=== PATIENT | male | born 1960 | race Caucasian/White ===

== ENCOUNTER 2016-04-28 13:25 | Observation (INO) | payer BC ==
[2016-04-28 13:27] VITALS: BP 154/87; PULSE 92; RESP 20; TEMP 97.8; O2SAT 94
--- NOTE | 2016-04-28 13:46 | PD ---
HPI Chief Complaint: Chest Pain Time Seen by Provider: 13:46 Travel History International Travel<30 days: No Contact w/Intl Traveler<30days: No Traveled to known affect area: No History of Present Illness HPI 55-year-old male with history of PTSD and anxiety presents to emergency department for 2 waves of chest pain. He states the first way OCCURRED about 20 minutes prior to arrival. It felt like increased heartburn with pain and then radiates into his left arm. Patient reports his next episode was in triage here. He states he felt like he was going to pass out. He had associated nausea and "cold sweats." He states that this time it has mostly resolved but he still has some residual tingling in his left upper extremity. No cardiac history. Patient smokes 3 tobacco cigarettes every evening. Denies any illicit drug use. No recent illnesses, fever, or chills. No other symptoms to report at this time. [facility] Past Medical History Anxiety: Yes Social History Alcohol Use: Yes Tobacco Use: Yes Substance Use: No Allergies-Medications (Allergen,Severity, Reaction): Coded Allergies: No Known Allergies (Unverified , 04/28/16) Reported Meds & Prescriptions Reported Meds & Active Scripts Active No Active Prescriptions or Reported Medications Review of Systems Except as stated in HPI: all other systems reviewed are Neg Physical Exam Narrative GENERAL: Well-nourished male patient, ambulatory no acute distress SKIN: Warm and dry. HEAD: Atraumatic. Normocephalic. EYES: Pupils equal and round. No scleral icterus. No injection or drainage. ENT: No nasal bleeding or discharge. Mucous membranes pink and moist. NECK: Trachea midline. No JVD. CARDIOVASCULAR: Regular rate and rhythm. No murmur appreciated. RESPIRATORY: No accessory muscle use. Clear to auscultation. Breath sounds equal bilaterally. GASTROINTESTINAL: Abdomen soft, non-tender, nondistended. Hepatic and splenic margins not palpable. MUSCULOSKELETAL: No obvious deformities. No clubbing. No cyanosis. No edema. NEUROLOGICAL: Awake and alert. No obvious cranial nerve deficits. Motor grossly within normal limits. Normal speech. PSYCHIATRIC: Appropriate mood and affect; insight and judgment normal. Data Data Last Documented VS Vital Signs Date Time Temp Pulse Resp B/P Pulse Ox O2 Delivery O2 Flow Rate FiO2 04/28/16 16:34 60 18 136/80 100 Nasal Cannula 2 04/28/16 13:27 97.8 Orders Electrocardiogram (04/28/16 13:42) Basic Metabolic Panel (Bmp) (04/28/16 13:42) Ckmb (Isoenzyme) Profile (04/28/16 13:42) Complete Blood Count With Diff (04/28/16 13:42) Magnesium (Mg) (04/28/16 13:42) Prothrombin Time / Inr (Pt) (04/28/16 13:42) Act Partial Throm Time (Ptt) (04/28/16 13:42) Troponin I (04/28/16 13:42) Chest, Pa & Lat (04/28/16 13:42) Aspirin Chew (Aspirin Chew) (04/28/16 14:15) CKMB (04/28/16 13:47) CKMB% (04/28/16 13:47) Troponin I (04/28/16 16:21) Admit Order (Ed Use Only) (04/28/16 16:53) Labs Laboratory Tests Test 04/28/16 04/28/16 13:47 16:52 White Blood Count 9.7 TH/MM3 Red Blood Count 4.75 MIL/MM3 Hemoglobin 14.5 GM/DL Hematocrit 41.6 % Mean Corpuscular Volume 87.7 FL Mean Corpuscular Hemoglobin 30.5 PG Mean Corpuscular Hemoglobin 34.8 % Concent Red Cell Distribution Width 13.1 % Platelet Count 245 TH/MM3 Mean Platelet Volume 7.6 FL Neutrophils (%) (Auto) 59.4 % Lymphocytes (%) (Auto) 31.6 % Monocytes (%) (Auto) 7.5 % Eosinophils (%) (Auto) 0.9 % Basophils (%) (Auto) 0.6 % Neutrophils # (Auto) 5.7 TH/MM3 Lymphocytes # (Auto) 3.1 TH/MM3 Monocytes # (Auto) 0.7 TH/MM3 Eosinophils # (Auto) 0.1 TH/MM3 Basophils # (Auto) 0.1 TH/MM3 CBC Comment DIFF FINAL Differential Comment Prothrombin Time 11.2 SEC Prothromb Time International 1.0 RATIO Ratio Activated Partial 29.4 SEC Thromboplast Time Sodium Level 141 MEQ/L Potassium Level 3.9 MEQ/L Chloride Level 104 MEQ/L Carbon Dioxide Level 27.9 MEQ/L Anion Gap 9 MEQ/L Blood Urea Nitrogen 17 MG/DL Creatinine 0.83 MG/DL Estimat Glomerular Filtration 97 ML/MIN Rate Random Glucose 111 MG/DL Calcium Level 8.4 MG/DL Magnesium Level 2.1 MG/DL Total Creatine Kinase 254 U/L Creatine Kinase MB 2.6 NG/ML Troponin I LESS THAN 0.02 0.02 NG/ML NG/ML MDM Medical Decision Making Medical Screen Exam Complete: Yes Emergency Medical Condition: Yes Medical Record Reviewed: Yes Differential Diagnosis STEMI versus nSTEMI versus vasospasm versus pleuritic pain versus chest wall pain versus anxiety Narrative Course 55-year-old male presents to emergency apartment for evaluation of chest pain. Workup initiated in triage. Once medical but consolable, patient is transferred and care assumed by that provider. Scripts No Active Prescriptions or Reported Meds Condition: Stable Jeimy Lopez Apr 28, 2016 13:46
[2016-04-28 14:08] LABS: AUTOMATED NEUTROPHIL # 5.7 TH/MM3 (1.8-7.7); BASOPHIL # 0.1 TH/MM3 (0-0.2); BASOPHIL % 0.6 % (0.0-2.0); EOSINOPHIL # 0.1 TH/MM3 (0-0.4); EOSINOPHIL % 0.9 % (0.0-4.0); HEMATOCRIT 41.6 % (39.0-51.0); HEMO FLAGS DIFF FINAL; LYMPH % 31.6 % (9.0-44.0); LYMPHOCYTE # 3.1 TH/MM3 (1.0-4.8); MEAN CELL VOLUME 87.7 FL (80.0-100.0); MEAN CORPUSCULAR HEMOGLOBIN 30.5 PG (27.0-34.0); MEAN CORPUSCULAR HGB CONC 34.8 % (32.0-36.0); MONO % 7.5 % (0.0-8.0); NEUT % 59.4 % (16.0-70.0); PLATELET COUNT 245 TH/MM3 (150-450); RED BLOOD COUNT 4.75 MIL/MM3 (4.50-5.90); RED CELL DISTRIBUTION WIDTH 13.1 % (11.6-17.2); WHITE BLOOD COUNT 9.7 TH/MM3 (4.0-11.0)
[2016-04-28 14:14] LABS: APTT (PATIENT) 29.4 SEC (24.3-30.1); PROTHROMBIN TIME - PATIENT 11.2 SEC (9.8-11.6)
[2016-04-28] MEDS ORDERED: ASPIRIN 81 MG CHEW TAB CHEW ONE (14:15)
[2016-04-28 14:22] LABS: ANION GAP 9 MEQ/L (5-15); BICARBONATE 27.9 MEQ/L (21.0-32.0); BLOOD UREA NITROGEN 17 MG/DL (7-18); CHLORIDE 104 MEQ/L (98-107); GLOMERULAR FILTRATION RATE 97 ML/MIN (>89); MAGNESIUM 2.1 MG/DL (1.5-2.5); POTASSIUM 3.9 MEQ/L (3.5-5.1); SODIUM (NA) 141 MEQ/L (136-145)
[2016-04-28 14:25] LABS: CREATINE KINASE 254 U/L (39-308)
--- NOTE | 2016-04-28 14:25 | RADRPT ---
EXAM DATE/TIME: 04/28/2016 14:13 [place] COMPARISON: No previous studies available for comparison. INDICATIONS : Patient states he had chest pain and left arm pain starting this afternoon. MEDICAL HISTORY : None. SURGICAL HISTORY : Cervical fusion. ENCOUNTER: Initial ACUITY: 1 day PAIN SCORE: 0/10 LOCATION: chest FINDINGS: PA and lateral views of the chest demonstrate the lungs to be symmetrically aerated without evidence of mass, infiltrate or effusion. The cardiomediastinal contours are unremarkable. Osseous structure s are intact. CONCLUSION: 1. No acute cardiopulmonary findings Obinna Musa MD on April 28, 2016 at 14:23 Board Certified Radiologist. This report was verified electronically.
[2016-04-28 14:37] LABS: CKMB 2.6 NG/ML (0.5-3.6)
[2016-04-28 16:34] VITALS: BP 136/80; PULSE 60; RESP 18; O2SAT 100
--- NOTE | 2016-04-28 16:53 | PD ---
Data Data Last Documented VS Vital Signs Date Time Temp Pulse Resp B/P Pulse Ox O2 Delivery O2 Flow Rate FiO2 04/28/16 16:34 60 18 136/80 100 Nasal Cannula 2 04/28/16 13:27 97.8 Orders Electrocardiogram (04/28/16 13:42) Basic Metabolic Panel (Bmp) (04/28/16 13:42) Ckmb (Isoenzyme) Profile (04/28/16 13:42) Complete Blood Count With Diff (04/28/16 13:42) Magnesium (Mg) (04/28/16 13:42) Prothrombin Time / Inr (Pt) (04/28/16 13:42) Act Partial Throm Time (Ptt) (04/28/16 13:42) Troponin I (04/28/16 13:42) Chest, Pa & Lat (04/28/16 13:42) Aspirin Chew (Aspirin Chew) (04/28/16 14:15) CKMB (04/28/16 13:47) CKMB% (04/28/16 13:47) Troponin I (04/28/16 16:21) Labs Laboratory Tests Test 04/28/16 13:47 White Blood Count 9.7 TH/MM3 Red Blood Count 4.75 MIL/MM3 Hemoglobin 14.5 GM/DL Hematocrit 41.6 % Mean Corpuscular Volume 87.7 FL Mean Corpuscular Hemoglobin 30.5 PG Mean Corpuscular Hemoglobin 34.8 % Concent Red Cell Distribution Width 13.1 % Platelet Count 245 TH/MM3 Mean Platelet Volume 7.6 FL Neutrophils (%) (Auto) 59.4 % Lymphocytes (%) (Auto) 31.6 % Monocytes (%) (Auto) 7.5 % Eosinophils (%) (Auto) 0.9 % Basophils (%) (Auto) 0.6 % Neutrophils # (Auto) 5.7 TH/MM3 Lymphocytes # (Auto) 3.1 TH/MM3 Monocytes # (Auto) 0.7 TH/MM3 Eosinophils # (Auto) 0.1 TH/MM3 Basophils # (Auto) 0.1 TH/MM3 CBC Comment DIFF FINAL Differential Comment Prothrombin Time 11.2 SEC Prothromb Time International 1.0 RATIO Ratio Activated Partial 29.4 SEC Thromboplast Time Sodium Level 141 MEQ/L Potassium Level 3.9 MEQ/L Chloride Level 104 MEQ/L Carbon Dioxide Level 27.9 MEQ/L Anion Gap 9 MEQ/L Blood Urea Nitrogen 17 MG/DL Creatinine 0.83 MG/DL Estimat Glomerular Filtration 97 ML/MIN Rate Random Glucose 111 MG/DL Calcium Level 8.4 MG/DL Magnesium Level 2.1 MG/DL Total Creatine Kinase 254 U/L Creatine Kinase MB 2.6 NG/ML Troponin I LESS THAN 0.02 NG/ML MDM Supervised Visit with ZEFERINO: Yes Narrative Course The history, exam, and medical decision-making in the associated midlevel provider note were completed with my assistance. I reviewed and agree with the findings presented. I attest that I had a [id number] encounter with the patient on the same day, and personally performed and documented my assessment and findings in the medical record. *My assessment and Findings: This is a 55-year-old male who has a significant family history of heart disease who presents to the emergency department with chest pain on the left side that radiates to the arm associated with nausea, diaphoresis and shortness of breath. EKG demonstrated some hyperacute T waves in the anterior and lateral leads with no reciprocal ST depressions. Initial troponin is negative. Patient was chest pain-free at the time EKG was obtained. I think patient requires serial cardiac enzymes and the chest pain center and risk stratification. Diagnosis Primary Impression: Chest pain Qualified Code: R07.9 - Chest pain, unspecified type Admitting Information Admitting Physician Requests: Observation Condition: Stable Celsa North MD Apr 28, 2016 16:53
[2016-04-28] MEDS ORDERED: NITROGLYCERIN 0.4 MG SL 25 TABS/BTL SL PRN (17:15)
[2016-04-28] MEDS ORDERED: SODIUM CHLORIDE 0.9% FLUSH 5 ML FLUSH IVF PRN (17:15)
[2016-04-28] MEDS ORDERED: ACETAMINOPHEN 500 MG CPLT PO PRN (17:15)
[2016-04-28] MEDS ORDERED: ONDANSETRON HCL 4 MG/2 ML VIAL IV PRN (17:15)
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
[2016-04-28] MEDS: PANTOPRAZOLE SOD 40 MG DELAYED RELEASE TAB PO SCH (19:13)
[2016-04-28 19:14] VITALS: BP 134/85
[2016-04-28] MEDS: SODIUM CHLORIDE 0.9% FLUSH 5 ML FLUSH IVF SCH (20:32)
[2016-04-28 21:15] LABS: CREATINE KINASE 185 U/L (39-308)
[2016-04-28 23:01] VITALS: BP 112/68; PULSE 97; RESP 19; TEMP 98; O2SAT 97
[2016-04-29 00:20] VITALS: PULSE 60
[2016-04-29 03:38] VITALS: BP 117/77; PULSE 73; RESP 19; TEMP 98.1; O2SAT 100
[2016-04-29 04:09] LABS: CREATINE KINASE 146 U/L (39-308)
[2016-04-29 04:20] VITALS: PULSE 54
[2016-04-29 04:21] LABS: CKMB 1.9 NG/ML (0.5-3.6)
[2016-04-29 07:38] VITALS: PULSE 64
[2016-04-29] MEDS: SODIUM CHLORIDE 0.9% FLUSH 5 ML FLUSH IVF SCH (07:58)
[2016-04-29] MEDS: PANTOPRAZOLE SOD 40 MG DELAYED RELEASE TAB PO SCH (07:58)
[2016-04-29 08:11] VITALS: BP 119/78; PULSE 56; RESP 18; TEMP 97.6; O2SAT 97
[2016-04-29] MEDS ORDERED: ASPIRIN 325 MG TAB PO SCH (09:00)
--- NOTE | 2016-04-29 10:24 | HHI.DCPOC ---
Discharge Care Plan Diagnosis: (1) Atypical chest pain Goals to Promote Your Health * To prevent worsening of your condition and complications * To maintain your health at the optimal level Directions to Meet Your Goals Take your medications as prescribed Follow your dietary instruction Follow activity as directed Keep your appointments as scheduled Take your immunizations and boosters as scheduled If your symptoms worsen call your PCP, if no PCP go to Urgent Care Center or Emergency Room Smoking is Dangerous to Your Health. Avoid second hand smoke Call the 24-hour hour crisis hotline for domestic abuse at Charisse Mclaughlin Apr 29, 2016 10:24
--- NOTE | 2016-04-29 15:08 | EKG ---
Date Performed: 04/28/2016 Time Performed: 13:49:30 PTAGE: 55 years EKG: Sinus rhythm POSSIBLE LEFT VENTRICULAR HYPERTROPHY ABNORMAL ECG INTERPRETATION BASED ON A DEFAULT AGE OF 40 YEARS NO PREVIOUS TRACING DOCTOR: Contreras Bryant Interpretating Date/Time 04/29/2016 15:06:25
--- NOTE | 2016-04-29 15:09 | EKG ---
Date Performed: 04/28/2016 Time Performed: 17:45:08 PTAGE: 55 years EKG: SINUS BRADYCARDIA EARLY REPOLARIZATION ABNORMAL ECG NO PREVIOUS TRACING DOCTOR: Contreras Bryant Interpretating Date/Time 04/29/2016 15:07:19
--- NOTE | 2016-04-29 15:09 | EKG ---
Date Performed: 04/28/2016 Time Performed: 20:40:20 PTAGE: 55 years EKG: SINUS BRADYCARDIA MODERATE INTRAVENTRICULAR CONDUCTION DELAY BORDERLINE ECG PREVIOUS TRACING : 04/28/2016 17.45 Since previous tracing, no significant change noted DOCTOR: Contreras Bryant Interpretating Date/Time 04/29/2016 15:07:36
--- NOTE | 2016-04-29 15:10 | TR ---
Date Performed: 04/29/2016 Time Performed: 09:49:44 DOCTOR: Contreras Bryant DRUG LIST: CLINICAL HISTORY: REASON FOR TEST: REASON FOR ENDING: OBSERVATION: CONCLUSION: Niko protocol completed. Stopped sec to exceeding target heart rate and leg fatigue . Maximum SZ=532 Target HR Achieved=88.0% Maximum NW=958/78 Total Exercise Time=9:01. No ectopy. No s t depression to sugg ischemia. Good exercise tolerance. Normal bp response. Recovery quick and unrema rkable. COMMENTS: Patient exercised using the Niko protocol. No electrocardiographic changes were seen to suggest ischemia. Hemodynamic response to exercise was normal. No significant arrhythmia was prese nt.
[2016-04-30 00:22] VITALS: BP 188/84; PULSE 85; RESP 18; TEMP 97.9; O2SAT 97
== END 2016-04-29 22:31 | disposition home or self-care (01) ==
LOC: NEPA 13:25 → NEDA 16:55 → NEPGCP 19:50
PROVIDERS: ADMIT Internal Medicine Interventional Cardiology; ATTEND Internal Medicine Interventional Cardiology
DX: R07.89 Other chest pain (principal); K21.9 Gastro-esophageal reflux disease without esophagitis; F43.10 Post-traumatic stress disorder, unspecified; F41.9 Anxiety disorder, unspecified; R11.0 Nausea; R61 Generalized hyperhidrosis; F17.210 Nicotine dependence, cigarettes, uncomplicated; Z82.49 Family history of ischemic heart disease and other diseases of the circulatory system; Z71.6 Tobacco abuse counseling; Z98.1 Arthrodesis status
CPT/HCPCS: 71020; 80048; 82550; 82552; 83735; 84484; 85025; 85610; 85730; 93005; 93017; 99285; G0378